=== PATIENT | male | born 1960 | race Caucasian/White ===

== ENCOUNTER 2016-08-30 16:18 | Observation (INO) | payer OTHER ==
--- NOTE | 2016-08-30 16:44 | EDM.PDOC ---
ED HPI GENERAL MEDICAL PROBLEM - General Chief Complaint: Respiratory Problem Stated Complaint: FEVER/SOB Time Seen by Provider: 08/30/16 16:36 - History of Present Illness INITIAL COMMENTS - FREE TEXT/NARRATIVE: 56-year-old male sent over from the clinic for further evaluation of his breathing difficulties fever and asthma. The patient has had increasing breathing difficulties over the last 5-6 days. The patient has a history of recurrent pneumonia he is has long-standing asthma that is well to his inhalers he has a nebulizer at home. The patient has had increasing shortness of breath increasing wheezing he had significant wheezing this morning. Patient was evaluated in the clinic white count elevated C- reactive protein elevated chest x-ray did not show any acute changes. Dr. Perez his regular physician was concerned about bibasilar crackles really did not hear any wheezes. Patient is having worsening chest pain he thinks related to the cough. Addition to this inhalers he has albuterol nebulizer at home this helped perhaps a little early this morning Epigastric Pain Score (Numeric/FACES): 5 - Related Data Allergies Allergy/AdvReac Type Severity Reaction Status Date / Time Penicillins Allergy Mild Rash Verified 08/30/16 16:29 levofloxacin Allergy Rash Verified 08/30/16 16:29 chlorpheniramine polistirex AdvReac Other Verified 08/30/16 16:29 [From Tussionex] hydrocodone polistirex AdvReac Other Verified 08/30/16 16:29 [From Tussionex] Home Meds: Home Meds Glimepiride [Amaryl] 4 mg PO DAILY 11/05/13 [History] atorvaSTATin Calcium [Atorvastatin Calcium] 10 mg PO DAILY 11/05/13 [History] Omeprazole [Prilosec] 20 mg PO DAILY 02/05/14 [History] metFORMIN [Glucophage] 1,000 mg PO BID 11/20/14 [History] Losartan [Cozaar] 50 mg PO DAILY 01/30/15 [History] Albuterol Sulfate 1 unit NEB QID PRN 08/30/16 [History] Albuterol [Ventolin HFA] 108 mcg INH Q6H PRN 08/30/16 [History] Aspirin [Halfprin] 81 mg PO DAILY 08/30/16 [History] Budesonide/Formoterol [Symbicort 160-4.5 MCG] 2 inh INH DAILY 08/30/16 [History] Halobetasol Propionate [Ultravate] 1 applic TOP BID 08/30/16 [History] Montelukast [Singulair] 10 mg PO BEDTIME 08/30/16 [History] SitaGLIPtin [Januvia] 100 mg PO DAILY 08/30/16 [History] Past Medical History Respiratory History: Reports: Asthma, COPD Endocrine/Metabolic History: Reports: Diabetes, Type II - Past Surgical History GI Surgical History: Reports: Colonoscopy Social & Family History - Tobacco Use Smoking Status *Q: Never Smoker Second Hand Smoke Exposure: Yes - Caffeine Use Caffeine Use: Reports: None - Alcohol Use Days Per Week of Alcohol Use: 0 - Recreational Drug Use Recreational Drug Use: No ED ROS GENERAL - Review of Systems Review Of Systems: See Below Constitutional: Reports: Fever, Chills, Weakness, Fatigue HEENT: Reports: No Symptoms Respiratory: Reports: Shortness of Breath, Wheezing, Pleuritic Chest Pain, Cough , Sputum. Denies: Hemoptysis Cardiovascular: Reports: Chest Pain, Dyspnea on Exertion. Denies: Claudication , Palpitations Endocrine: Reports: No Symptoms GI/Abdominal: Reports: No Symptoms : Reports: No Symptoms Skin: Reports: No Symptoms Neurological: Reports: No Symptoms Psychiatric: Reports: No Symptoms Hematologic/Lymphatic: Reports: No Symptoms ED EXAM, GENERAL - Physical Exam Exam: See Below Exam Limited By: No Limitations General Appearance: Alert, Mild Distress (he has a cough that is very uncomfortable) Eye Exam: Bilateral Eye: EOMI, Normal Inspection, PERRL Ears: Normal External Exam, Normal Canal, Hearing Grossly Normal, Normal TMs Nose: Normal Inspection, Normal Mucosa, No Blood Throat/Mouth: Normal Inspection, Normal Lips, Normal Teeth, Normal Gums, Normal Oropharynx, Normal Voice, No Airway Compromise Head: Atraumatic, Normocephalic Neck: Normal Inspection, Supple, Non-Tender, Full Range of Motion. No: Lymphadenopathy (L), Lymphadenopathy (R) Respiratory/Chest: No Respiratory Distress, Other (he is mildly tachypnic. He has bibasilar crackles and end expiratory wheezes heard with my exam) Cardiovascular: Normal Peripheral Pulses, Regular Rate, Rhythm, No Edema GI/Abdominal: Normal Bowel Sounds, Soft, Non-Tender, No Organomegaly, No Distention, No Abnormal Bruit, No Mass, Other (obesity limits exam to a small degree) Back Exam: Normal Inspection. No: CVA Tenderness (L), CVA Tenderness (R), Muscle Spasm Extremities: Other (he had some vague right calf discomfort this was point tenderness over very small area) Neurological: Alert, Oriented, CN II-XII Intact, Normal Cognition Psychiatric: Normal Affect, Normal Mood Lymphatic: No Adenopathy EKG INTERPRETATION EKG Date: 08/30/16 Rhythm: NSR [place]: normal P-wave: present ST-T: normal QT: normal Comparison: no change (no change from July 2015) Course - Vital Signs Last Recorded V/S: Last Vital Signs Temp 37.0 C 08/30/16 16:26 Pulse 79 08/30/16 16:26 Resp 22 H 08/30/16 16:26 BP 130/69 08/30/16 16:26 Pulse Ox 95 08/30/16 16:57 - Orders/Labs/Meds Orders: Active Orders 24 hr Category Date Time Status EKG Documentation Completion [RC] STAT Care 08/30/16 16:48 Active RT Aerosol Therapy [RC] ASDIRECTED Care 08/30/16 16:50 Active CULTURE BLOOD [BC] Stat Lab 08/30/16 17:15 Received CULTURE BLOOD [BC] Stat Lab 08/30/16 17:25 Received Blood Culture x2 Reflex Set [OM.PC] Stat Oth 08/30/16 16:46 Ordered Labs: Laboratory Tests 08/30/16 08/30/16 08/30/16 Range/Units 16:40 16:40 16:40 WBC 15.32 H (4.23-9.07) K/mm3 Neutrophils % (Manual) 84 H (40-60) % Band Neutrophils % 1 (0-10) % Lymphocytes % (Manual) 12 L (20-40) % Atypical Lymphs % 0 % Monocytes % (Manual) 3 (2-10) % Eosinophils % (Manual) 0 L (0.8-7.0) % Basophils % (Manual) 0 L (0.2-1.2) Toxic Granulation 2+ moderate Platelet Estimate Adequate Plt Morphology Comment Normal RBC Morph Comment Normal D-Dimer, Quantitative 0.33 (0.19-0.59) mg/L Puncture Site ABG pH (7.35-7.45) ABG pCO2 (35.0-45.0) mmHg ABG pO2 (80.0-100.0) mmHg ABG HCO3 (22.0-26.0) meq/L ABG O2 Saturation (96.0-97.0) % ABG Base Excess (-2-2.0) Julio Test A-a Gradient mmHg FiO2 (21.00-100.00) % Sodium 141 (136-145) mEq/L Potassium 4.1 (3.5-5.1) mEq/L Chloride 104 (98-107) mEq/L Carbon Dioxide 29 (21-32) mEq/L Anion Gap 12.1 (5-15) BUN 13 (7-18) mg/dL Creatinine 1.1 (0.7-1.3) mg/dL Est Cr Clr Drug Dosing 83.28 mL/min Estimated GFR (MDRD) > 60 (>60) mL/min BUN/Creatinine Ratio 11.8 L (14-18) Glucose 125 H (74-106) mg/dL Lactic Acid (0.4-2.0) mmol/L Calcium 9.6 (8.5-10.1) mg/dL Total Bilirubin 0.3 (0.2-1.0) mg/dL AST 19 (15-37) U/L ALT 42 (16-63) U/L Alkaline Phosphatase 94 (46-116) U/L Troponin I < 0.017 (0.00-0.056) ng/mL Total Protein 7.2 (6.4-8.2) g/dl Albumin 3.6 (3.4-5.0) g/dl Globulin 3.6 gm/dL Albumin/Globulin Ratio 1.0 (1-2) 08/30/16 08/30/16 Range/Units 17:08 17:15 WBC (4.23-9.07) K/mm3 Neutrophils % (Manual) (40-60) % Band Neutrophils % (0-10) % Lymphocytes % (Manual) (20-40) % Atypical Lymphs % % Monocytes % (Manual) (2-10) % Eosinophils % (Manual) (0.8-7.0) % Basophils % (Manual) (0.2-1.2) Toxic Granulation Platelet Estimate Plt Morphology Comment RBC Morph Comment D-Dimer, Quantitative (0.19-0.59) mg/L Puncture Site Lt radial ABG pH 7.46 H (7.35-7.45) ABG pCO2 36.4 (35.0-45.0) mmHg ABG pO2 62.0 L (80.0-100.0) mmHg ABG HCO3 25.6 (22.0-26.0) meq/L ABG O2 Saturation 94.7 L (96.0-97.0) % ABG Base Excess 2.4 H (-2-2.0) Julio Test Positive A-a Gradient 27 mmHg FiO2 21.00 (21.00-100.00) % Sodium (136-145) mEq/L Potassium (3.5-5.1) mEq/L Chloride (98-107) mEq/L Carbon Dioxide (21-32) mEq/L Anion Gap (5-15) BUN (7-18) mg/dL Creatinine (0.7-1.3) mg/dL Est Cr Clr Drug Dosing mL/min Estimated GFR (MDRD) (>60) mL/min BUN/Creatinine Ratio (14-18) Glucose (74-106) mg/dL Lactic Acid 2.4 H (0.4-2.0) mmol/L Calcium (8.5-10.1) mg/dL Total Bilirubin (0.2-1.0) mg/dL AST (15-37) U/L ALT (16-63) U/L Alkaline Phosphatase (46-116) U/L Troponin I (0.00-0.056) ng/mL Total Protein (6.4-8.2) g/dl Albumin (3.4-5.0) g/dl Globulin gm/dL Albumin/Globulin Ratio (1-2) Meds: Medications Discontinued Medications Generic Name Dose Route Start Last Admin Trade Name Freq PRN Reason Stop Dose Admin Albuterol/Ipratropium 3 ml 08/30/16 16:49 08/30/16 16:56 Duoneb 3.0-0.5 Mg/3 Ml NEB 08/30/16 16:50 3 ml ONETIME ONE Administration Methylprednisolone Sodium Succinate 125 mg 08/30/16 16:49 08/30/16 17:06 Solu-Medrol IVPUSH 08/30/16 16:50 125 mg ONETIME ONE Administration Morphine Sulfate 2 mg 08/30/16 16:57 08/30/16 17:10 Morphine IVPUSH 05/25/17 16:58 2 mg ONETIME ONE Administration - Re-Assessments/Exams Free Text/Narrative Re-Assessment/Exam: 08/30/16 19:33 early in the patient's course she was given 125 mg of Solu-Medrol received a DuoNeb treatment and this helped significantly her labs from [facility] obtained and reviewed this x-ray wasnegative for acute changes showed some stable scarring in the left base no definitive consolidation. 08/30/16 20:03 CT is unremarkable, lactic acid slightly elevated at 2. MCG was done he meets criteria for observation. Case reviewed with Dr. Ríos Departure - Departure Time of Disposition: 20:02 Disposition: Refer to Observation Clinical Impression: Asthma exacerbation Chest pain Qualifiers: Chest pain type: unspecified Qualified Code(s): R07.9 - Chest pain, unspecified - Discharge Information Forms: ED Department Discharge - My Orders Last 24 Hours: My Active Orders 08/30/16 16:46 Blood Culture x2 Reflex Set [OM.PC] Stat 08/30/16 16:48 EKG Documentation Completion [RC] STAT 08/30/16 16:50 RT Aerosol Therapy [RC] ASDIRECTED 08/30/16 17:15 CULTURE BLOOD [BC] Stat 08/30/16 17:25 CULTURE BLOOD [BC] Stat - Assessment/Plan Last 24 Hours: My Active Orders 08/30/16 16:46 Blood Culture x2 Reflex Set [OM.PC] Stat 08/30/16 16:48 EKG Documentation Completion [RC] STAT 08/30/16 16:50 RT Aerosol Therapy [RC] ASDIRECTED 08/30/16 17:15 CULTURE BLOOD [BC] Stat 08/30/16 17:25 CULTURE BLOOD [BC] Stat
[2016-08-30] MEDS ORDERED: methylPREDNISolone Sodium Succinate 125 MG/2 ML SDV IVPUSH ONE (16:49)
[2016-08-30] MEDS ORDERED: Albuterol/Ipratropium 3.0-0.5 MG/3 ML Neb Soln NEB ONE (16:49)
[2016-08-30] MEDS ORDERED: Morphine 2 MG/ML Syringe IVPUSH ONE (16:57)
--- NOTE | 2016-08-30 19:57 | CT ---
Addendum: Impression states "nothing acute is seen on noncontrast head" CT which is obviously incorrect. This sentence should read as follows: Nothing acute is seen on noncontrast chest CT. --- Addendum1 above dictated on [09/05/2016 09:11] by [Noe Dunham Hilton J.] --- --- Addendum1 above signed on [09/05/2016 09:12] by [Noe Dunham Hilton J.] --- --- Original report below dictated on [08/30/2016 19:50] by [Noe Dunham Hilton J.] --- --- Original report below signed on [08/30/2016 19:55] by [Noe Dunham Hilton J.] --- CT chest Technique: Multiple axial sections through the chest were obtained. Intravenous contrast was not utilized. Comparison: Previous chest CT performed on 06/17/15. Findings: Mediastinum and hilar regions show no adenopathy or mass. Slight increased density noted within the subareolar regions of both breasts which is compatible with slight gynecomastia. No pericardial thickening is seen. Fatty infiltration is seen within the visualized portions of the liver. Lungs are clear. No pleural effusions are seen. No pneumothorax is identified. Bone window settings were reviewed which shows mild scattered disc space narrowing and minimal scattered endplate osteophytes. Impression: 1. Incidental findings as noted above. Nothing acute is seen on noncontrast head CT. No significant change is seen from prior chest CT. Diagnostic code #2 --- Addendum1 signed ---
[2016-08-30] MEDS ORDERED: Azithromycin 500 MG in Sodium Chloride 0.9% 250 ML IV ONE (20:07)
[2016-08-30] MEDS ORDERED: Promethazine 12.5 MG in Sodium Chloride 0.9% 50 ML IV PRN (21:12)
[2016-08-30] MEDS ORDERED: Bisacodyl 5 MG Tab PO PRN (21:12)
[2016-08-30] MEDS ORDERED: Ondansetron 4 MG/2 ML SDV IV PRN (21:12)
[2016-08-30] MEDS ORDERED: Acetaminophen/HYDROcodone 325-5 MG Tab PO PRN (21:12)
[2016-08-30] MEDS ORDERED: Docusate Sodium 100 MG Cap PO PRN (21:12)
[2016-08-30] MEDS ORDERED: LORazepam 2 MG/ML MDV IV PRN (21:12)
[2016-08-30] MEDS ORDERED: Sodium Chloride 0.9% 10 ML Syringe FLUSH PRN (21:12)
[2016-08-30] MEDS ORDERED: Albuterol/Ipratropium 3.0-0.5 MG/3 ML Neb Soln NEB PRN (21:12)
[2016-08-30] MEDS ORDERED: Temazepam 15 MG Cap PO PRN (21:12)
[2016-08-30] MEDS ORDERED: Acetaminophen 325 MG Tab PO PRN (21:12)
[2016-08-30] MEDS ORDERED: Polyethylene Glycol 3350 Powder 17 GM Packet PO PRN (21:12)
--- NOTE | 2016-08-30 21:12 | PCM.HP ---
H&P History of Present Illness - General Date of Service: 08/30/16 Admit Problem/Dx: Admission Diagnosis/Problem Admission Diagnosis/Problem Chest pain Source of Information: Patient, Old Records, Provider, RN Notes Reviewed History Limitations: Reports: No Limitations - History of Present Illness Initial Comments - Free Text/Narative: This is 56 yo white male HTN, HLD, Asthma, COPD, DM2 and Obesity who comes in with worsening shortness of breath, wheezing, chest pain and dyspnea. Patient carries a long standing hx/o Asthma. He was initially seen at his PCP's office but was referred to ED for further evaluation. Per ED notes, patient had elevated white count and CRP at the clinic. His initial CXR at the clinic shows no acute changes but his PCP was concerns about bibasilar crackles but did not hear any wheezing. Patient has puffers at home and nebs. He is also on singulair for maintenance meds. His follow up work up in ED Shows CBC remarkable for WBC 15.32, and Neutrophils or 84%. D-dimer is 0.33. Hid chemistry is remarkable for BS 125 and LA 2.4. His ABG shows Ph 7.46, pCO2 36.4, pO2 62. HCO3 25.6 and Os Sat 94.7. Patient is being admitted for Acute Asthma Attack. He is full code. Epigastric Pain Score (Numeric/FACES): 3 - Related Data Allergies/Adverse Reactions: Allergies Allergy/AdvReac Type Severity Reaction Status Date / Time Penicillins Allergy Mild Rash Verified 08/30/16 16:29 levofloxacin Allergy Rash Verified 08/30/16 16:29 chlorpheniramine polistirex AdvReac Other Verified 08/30/16 16:29 [From Tussionex] hydrocodone polistirex AdvReac Other Verified 08/30/16 16:29 [From Tussionex] Home Medications: Home Meds Glimepiride [Amaryl] 4 mg PO DAILY 11/05/13 [History] atorvaSTATin Calcium [Atorvastatin Calcium] 10 mg PO DAILY 11/05/13 [History] Omeprazole [Prilosec] 20 mg PO DAILY 02/05/14 [History] metFORMIN [Glucophage] 1,000 mg PO BID 11/20/14 [History] Losartan [Cozaar] 50 mg PO DAILY 10/25/15 [History] Albuterol Sulfate 1 unit NEB QID PRN 08/30/16 [History] Albuterol [Ventolin HFA] 108 mcg INH Q6H PRN 08/30/16 [History] Aspirin [Halfprin] 81 mg PO DAILY 08/30/16 [History] Budesonide/Formoterol [Symbicort 160-4.5 MCG] 2 inh INH DAILY 08/30/16 [History] Halobetasol Propionate [Ultravate] 1 applic TOP BID 08/30/16 [History] Montelukast [Singulair] 10 mg PO BEDTIME 08/30/16 [History] SitaGLIPtin [Januvia] 100 mg PO DAILY 08/30/16 [History] Past Medical History Respiratory History: Reports: Asthma, COPD Endocrine/Metabolic History: Reports: Diabetes, Type II - Past Surgical History GI Surgical History: Reports: Colonoscopy Social & Family History - Tobacco Use Smoking Status *Q: Never Smoker Second Hand Smoke Exposure: Yes - Caffeine Use Caffeine Use: Reports: None - Alcohol Use Days Per Week of Alcohol Use: 0 - Recreational Drug Use Recreational Drug Use: No H&P Review of Systems - Review of Systems: Review Of Systems: See Below General: Denies: Fever, Chills, Malaise, Weakness HEENT: Reports: No Symptoms Pulmonary: Reports: Shortness of Breath, Wheezing, Cough Cardiovascular: Reports: Chest Pain, Dyspnea on Exertion Gastrointestinal: Denies: Abdominal Pain, Decreased Appetite, Nausea, Vomiting Genitourinary: Reports: No Symptoms Musculoskeletal: Reports: No Symptoms Skin: Denies: Cyanosis, Pallor, Rash Psychiatric: Denies: Confusion, Depression, Anxiety, Hallucinations Neurological: Denies: Dizziness, Headache, Difficulty Walking, Weakness, Gait Disturbance Hematologic/Lymphatic: Reports: No Symptoms Immunologic: Reports: No Symptoms Exam - Exam Exam: See Below - Vital Signs Vital Signs: Last Vital Signs Temp 37.0 C 08/30/16 16:26 Pulse 85 08/30/16 20:44 Resp 20 08/30/16 20:44 BP 140/88 08/30/16 20:44 Pulse Ox 95 08/30/16 20:44 Weight: 140.659 kg - Exam General: Alert, Oriented, Cooperative, Other (Obese). No: Mild Distress HEENT: Conjunctiva Clear, EACs Clear, EOMI, Hearing Intact, Mucosa Moist & Wall , Nares Patent, Normal Nasal Septum, Posterior Pharynx Clear, Pupils Equal, Pupils Reactive Neck: Supple, Trachea Midline, +2 Carotid Pulse wo Bruit, Full Range of Motion, Other (short and thick) Lungs: Clear to Auscultation, Normal Respiratory Effort Cardiovascular: Regular Rate, Regular Rhythm Abdomen: Normal Bowel Sounds, Soft, Organomegaly, Other (Obese). No: Tenderness (Male) Exam: Deferred Rectal (Males) Exam: Deferred Back Exam: Normal Inspection, Decreased Range of Motion Extremities: Normal Inspection, Normal Pulses. No: Clubbing, Cyanosis, Calf Tenderness, Edema Peripheral Pulses: 2+: Posterior Tibial (R), Dorsalis Pedis (L), Dorsalis Pedis (R) Skin: Warm, Dry, Intact Neuro Extensive - Mental Status: Oriented x3, Normal Cognition, Memory Intact Neuro Extensive - Motor, Sensory, Reflexes: CN II-XII Intact, Normal Gait Psychiatric: Alert, Normal Affect, Normal Mood - Patient Data Result Diagrams: 08/30/16 16:40 08/30/16 16:40 *Q Meaningful Use (ADM) - VTE *Q VTE Criteria *Q: - Stroke *Q Stroke Criteria *Q: - AMI *Q AMI Criteria *Q: Problem List Initiated/Reviewed/Updated: Yes Assessment/Plan Comment:: Assessment/Plan: Acute Asthma Attack - Risk factor: Chronic Asthma - Chest CT scan: nothing acutely - Exposure to environmental triggers - IV Solumedrol, IV Azithromycin, H1B, Singulair and Bronchodilators Lactic Acidoses - 2/2 localized hypoxia - Will monitor Leukocytosis - 2/2 Stress and Steroids Use Chronic: DM2 HLD HLD GERD Obesity with BMI 42 Plan: Admit to the floor with pulse ox Resume Home Meds Routine AM Labs RT consult SW/CM for d/c planning Code status:1
[2016-08-30] MEDS ORDERED: Magnesium Sulfate/Water 2 GM in Premix Bag 1 BAG IV ONE (22:22)
[2016-08-30] MEDS ORDERED: VENTOLIN INHALER INH PRN (22:50)
[2016-08-30] MEDS ORDERED: Albuterol 0.083% 2.5 MG/3 ML Neb Soln NEB PRN (22:50)
[2016-08-30] MEDS: Morphine 2 MG/ML Syringe IVPUSH PRN (22:56)
[2016-08-30] MEDS ORDERED: MONTELUKAST 10 MG PO ONE (23:00)
[2016-08-30] MEDS ORDERED: METFORMIN 1000 MG PO ONE (23:00)
[2016-08-31] MEDS: methylPREDNISolone Sodium Succinate 125 MG/2 ML SDV IVPUSH SCH ×4 (01:06→23:57)
[2016-08-31] MEDS ORDERED: Temazepam 30 MG Cap PO PRN (07:25)
[2016-08-31] MEDS: Pantoprazole 40 MG Tab.CR PO SCH (08:45)
[2016-08-31] MEDS: Azithromycin 500 MG in Sodium Chloride 0.9% 250 ML IV SCH (08:45)
[2016-08-31] MEDS: METFORMIN 1000 MG PO SCH ×2 (08:49→21:39)
[2016-08-31] MEDS: ASPIRIN 81 MG PO SCH (08:49)
[2016-08-31] MEDS: JANUVIA PO SCH (08:50)
[2016-08-31] MEDS: SITAGLIPTIN 100 MG PO SCH (08:50)
[2016-08-31] MEDS: Formoterol/Mometasone 200-5 MCG 8.8 GM Inhaler IH SCH (08:51)
[2016-08-31] MEDS ORDERED: Bumetanide 1 MG/4 ML MDV IVPUSH ONE (10:26)
--- NOTE | 2016-08-31 11:31 | PCM.PN ---
- General Info Date of Service: 08/31/16 Admission Dx/Problem (Free Text): Admission Diagnosis/Problem Admission Diagnosis/Problem Chest pain Subjective Update: Follow Up Functional Status: Reports: pain controlled, tolerating diet, ambulating, urinating. Denies: new symptoms - Review of Systems General: Denies: Fever, Weakness, Fatigue, Malaise, Chills HEENT: Reports: no symptoms Pulmonary: Denies: shortness of breath, cough Cardiovascular: Reports: Dyspnea on Exertion. Denies: Chest Pain, Edema, Lightheadedness Gastrointestinal: Denies: Abdominal pain, Nausea, Vomiting Genitourinary: Reports: no symptoms Musculoskeletal: Reports: no symptoms Skin: Reports: no symptoms Neurological: Denies: Confusion, Difficulty Walking, Weakness, Gait Disturbance Psychiatric: Denies: depression, anxiety, agitation, cravings Systems Review Comment:: No overnight issues. He feels better but no much. He has no acute issues. - Patient Data Vitals - most recent: Last Vital Signs Temp 36.4 C 08/31/16 08:56 Pulse 78 08/31/16 08:56 Resp 18 08/31/16 08:56 BP 148/73 H 08/31/16 08:56 Pulse Ox 95 08/31/16 08:56 Weight - most recent: 140.024 kg I&O - last 24 hours: Intake & Output 08/30/16 08/31/16 08/31/16 22:59 06:59 14:59 Intake Total 648 240 Output Total 150 425 Balance -150 223 240 Lab Results last 24 hrs: Laboratory Results - last 24 hr 08/31/16 08/31/16 Range/Units 05:47 05:47 WBC 16.42 H (4.23-9.07) K/mm3 RBC 5.09 (4.63-6.08) M/mm3 Hgb 14.3 (13.7-17.5) gm/L Hct 44.5 (40.1-51.0) % MCV 87.4 (79.0-92.2) fl MCH 28.1 (25.7-32.2) pg MCHC 32.1 L (32.2-35.5) g/dl RDW Std Deviation 45.1 H (35.1-43.9) fL Plt Count 268 (163-337) K/mm3 MPV 11.5 (9.4-12.3) fl Neut % (Auto) 94.5 H (34.0-67.9) % Lymph % (Auto) 4.8 L (21.8-53.1) % [place] % (Auto) 0.4 L (5.3-12.2) % Eos % (Auto) 0 L (0.8-7.0) Baso % (Auto) 0.1 (0.1-1.2) % Neut # (Auto) 15.51 H (1.78-5.38) K/mm3 Lymph # (Auto) 0.79 L (1.32-3.57) K/mm3 [place] # (Auto) 0.07 L (0.30-0.82) K/mm3 Eos # (Auto) 0.00 L (0.04-0.54) K/mm3 Baso # (Auto) 0.01 (0.01-0.08) K/mm3 Manual Slide Review Normal smear Sodium 137 (136-145) mEq/L Potassium 4.4 (3.5-5.1) mEq/L Chloride 102 (98-107) mEq/L Carbon Dioxide 23 (21-32) mEq/L Anion Gap 16.4 H (5-15) BUN 16 (7-18) mg/dL Creatinine 1.1 (0.7-1.3) mg/dL Est Cr Clr Drug Dosing 83.28 mL/min Estimated GFR (MDRD) > 60 (>60) mL/min BUN/Creatinine Ratio 14.5 (14-18) Glucose 255 H (74-106) mg/dL Calcium 8.9 (8.5-10.1) mg/dL Magnesium 2.0 (1.8-2.4) mg/dl CK-MB (CK-2) < 0.5 (0-3.6) ng/ml Troponin I < 0.017 (0.00-0.056) ng/mL C-Reactive Protein 2.9 H* (<1.0) mg/dL Med Orders - Current: Current Medications Acetaminophen (Tylenol) 650 mg PO Q4H PRN PRN Reason: Pain (Mild 1-3)/fever Hydrocodone Bitart/Acetaminophen ([place] 325-5 Mg) 1 tab PO Q4H PRN PRN Reason: Pain (moderate 4-6) Albuterol (Proventil Neb Soln) 2.5 mg NEB QID PRN PRN Reason: wheezing Albuterol/Ipratropium (Duoneb 3.0-0.5 Mg/3 Ml) 3 ml NEB Q4H PRN PRN Reason: Shortness Of Breath/wheezing Bisacodyl (Dulcolax) 5 mg PO DAILY PRN PRN Reason: Constipation Docusate Sodium (Colace) 100 mg PO BID PRN PRN Reason: Constipation Promethazine HCl 12.5 mg/ (Sodium Chloride) 50.5 mls @ 100 mls/hr IV Q6H PRN PRN Reason: Nausea/Vomiting Azithromycin 500 mg/ Sodium (Chloride) 250 mls @ 250 mls/hr IV Q24H [facility] Last Admin: 08/31/16 08:45 Dose: 250 mls/hr Lorazepam (Ativan) 1 mg IV Q6H PRN PRN Reason: Anxiety Methylprednisolone Sodium Succinate (Solu-Medrol) 125 mg IVPUSH Q8H [facility] Last Admin: 08/31/16 08:46 Dose: 125 mg Mometasone Furoate/Formoterol Fumar (Dulera 200-5 Mcg) 0 puff IH DAILY [facility] Last Admin: 08/31/16 08:51 Dose: 1 puff Morphine Sulfate (Morphine) 2 mg IVPUSH Q4H PRN PRN Reason: Other Last Admin: 08/30/16 22:56 Dose: 2 mg Ondansetron HCl (Zofran) 4 mg IV Q6H PRN PRN Reason: Nausea/Vomiting Pantoprazole Sodium (Protonix) 40 mg PO DAILY@0700 [facility] Last Admin: 08/31/16 08:45 Dose: 40 mg (Aspirin [Halfprin] 81 Mg)Own Med * 0 each PO DAILY [facility] Last Admin: 08/31/16 08:49 Dose: 1 each (Glimepiride [Amaryl ] 4 Mg)Own Med 0 each PO DAILY [facility] Last Admin: 08/31/16 08:47 Dose: 1 each (Halobetasol Propionate [ Ultravate] Topical 0 each TOP BID [facility] Last Admin: 08/31/16 08:47 Dose: Not Given (Losartan 50 Mg) (Own Med) 0 each PO DAILY [facility] Last Admin: 08/31/16 08:48 Dose: 1 each Montelukast 10 Mg (TabOwn Med) 0 each PO BEDTIME [facility] (Sitagliptin 100 Mg) (Januvia) 0 each PO DAILY [facility] Last Admin: 08/31/16 08:50 Dose: 1 each (Atorvastatin Calcium 10 Mg) Own Med 0 each PO DAILY [facility] Last Admin: 08/31/16 08:46 Dose: 1 each (Metformin [ Glucophage] 1,000 Mg )Own Med 0 each PO BID [facility] Last Admin: 08/31/16 08:49 Dose: 1 each Ventolin Inhaler 0 each INH Q6H PRN PRN Reason: wheezing Polyethylene Glycol (Miralax) 17 gm PO DAILY PRN PRN Reason: Constipation Senna/Docusate Sodium (Senna Plus) 1 tab PO BID PRN PRN Reason: Constipation Sodium Chloride (Saline Flush) 10 ml FLUSH ASDIRECTED PRN PRN Reason: Keep Vein Open Temazepam (Restoril) 30 mg PO BEDTIME PRN PRN Reason: Sleep Discontinued Medications Albuterol/Ipratropium (Duoneb 3.0-0.5 Mg/3 Ml) 3 ml NEB ONETIME ONE Stop: 08/30/16 16:50 Last Admin: 08/30/16 16:56 Dose: 3 ml Bumetanide (Bumex) 1 mg IVPUSH ONETIME ONE Stop: 08/31/16 10:27 Azithromycin 500 mg/ Sodium (Chloride) 250 mls @ 250 mls/hr IV ONETIME ONE Stop: 08/30/16 21:06 Last Admin: 08/30/16 20:15 Dose: 250 mls/hr Magnesium Sulfate 2 gm/ Premix 50 mls @ 25 mls/hr IV ONETIME ONE Stop: 08/31/16 00:21 Last Admin: 08/30/16 22:47 Dose: 25 mls/hr Methylprednisolone Sodium Succinate (Solu-Medrol) 125 mg IVPUSH ONETIME ONE Stop: 08/30/16 16:50 Last Admin: 08/30/16 17:06 Dose: 125 mg Montelukast Sodium (Singulair) 10 mg PO ONETIME ONE Stop: 08/30/16 23:01 Last Admin: 08/30/16 22:49 Dose: 10 mg Morphine Sulfate (Morphine) 2 mg IVPUSH ONETIME ONE Stop: 08/30/16 16:58 Last Admin: 08/30/16 17:10 Dose: 2 mg (Atorvastatin Calcium 10 Mg) Own Med 10 mg PO ONETIME ONE Stop: 08/30/16 23:01 Last Admin: 08/30/16 22:48 Dose: 10 mg (Metformin [ Glucophage] 1,000 Mg )Own Med 1,000 mg PO ONETIME ONE Stop: 08/30/16 23:01 Last Admin: 08/30/16 22:49 Dose: 1,000 mg Temazepam (Restoril) 30 mg PO BEDTIME PRN PRN Reason: Sleep - Exam Quality Assessment: No: supplemental oxygen General: alert, oriented, cooperative, no acute distress, mild distress HEENT: Pupils equal, Pupils reactive, EOMI, Mucous membr. moist/pink Neck: supple, trachea midline, no JVD, no thyromegaly Lungs: Clear to auscultation, Normal respiratory effort, Decreased breath sounds. No: Wheezing Cardiovascular: Regular Rate, Regular Rhythm Abdomen: bowel sounds present, soft, no tenderness, no distension (Male) Exam: Deferred Back Exam: Normal Inspection, Decreased Range of Motion Extremities: no edema, normal pulses, no tenderness/swelling, no clubbing, no cyanosis, no calf tenderness Peripheral Pulses: 2+: Dorsalis Pedis (L), Dorsalis Pedis (R) Skin: warm, dry, intact Neurological: no new focal deficit Psy/Mental Status: alert, normal affect, normal mood - Problem List Review Problem List Initiated/Reviewed/Updated: Yes - My Orders Last 24 Hours: My Active Orders 08/30/16 21:12 Height and Weight [RC] 04 Intake and Output [RC] 04,16 Oxygen Therapy [RC] PRN Pulse Oximetry [RC] CONTINUOUS Up With Assistance [RC] ASDIRECTED Up ad Wendy [RC] ASDIRECTED VTE/DVT Education [RC] DAILY Vital Signs [RC] Q6H Acetaminophen [Tylenol] 650 mg PO Q4H PRN Acetaminophen/HYDROcodone [[place] 325-5 MG] 1 tab PO Q4H PRN Albuterol/Ipratropium [DuoNeb 3.0-0.5 MG/3 ML] 3 ml NEB Q4H PRN Bisacodyl [Dulcolax] 5 mg PO DAILY PRN Docusate Sodium [Colace] 100 mg PO BID PRN Docusate Sodium/Sennosides [Senna Plus] 1 tab PO BID PRN LORazepam [Ativan] 1 mg IV Q6H PRN Ondansetron [Zofran] 4 mg IV Q6H PRN Polyethylene Glycol 3350 [MiraLAX] 17 gm PO DAILY PRN Promethazine [Phenergan] 12.5 mg Sodium Chloride 0.9% [Normal Saline] 50 ml IV Q6H Sodium Chloride 0.9% [Saline Flush] 10 ml FLUSH ASDIRECTED PRN Saline Lock Insert [OM.PC] Routine Sequential Compression Device [OM.PC] Per Unit Routine Resuscitation Status Routine 08/30/16 21:13 Antiembolic Devices [RC] DAILY 08/30/16 21:14 Consult to Case Management [CONS] Routine Consult to Automotive Service Manager [CONS] Routine Respiratory Care Assess and Treatment [CONS] Routine 08/30/16 21:18 Morphine 2 mg IVPUSH Q4H PRN 08/30/16 22:50 Albuterol [Proventil Neb Soln] 2.5 mg NEB QID PRN Patient's Own Medication [Ptom] 0 each INH Q6H PRN 08/30/16 Dinner Regular Diet [DIET] 08/31/16 00:00 methylPREDNISolone Sod Succ [Solu-MEDROL] 125 mg IVPUSH Q8H 08/31/16 07:25 Temazepam [Restoril] 30 mg PO BEDTIME PRN 08/31/16 08:15 Pantoprazole [ProTONIX] 40 mg PO DAILY@0700 08/31/16 09:00 Azithromycin [Zithromax] 500 mg Sodium Chloride 0.9% [Normal Saline] 250 ml IV Q24H Mometasone/Formoterol [Dulera 200-5 MCG] 0 puff IH DAILY Patient's Own Medication [Ptom] 0 each PO BID Patient's Own Medication [Ptom] 0 each PO DAILY Patient's Own Medication [Ptom] 0 each PO DAILY Patient's Own Medication [Ptom] 0 each PO DAILY Patient's Own Medication [Ptom] 0 each PO DAILY Patient's Own Medication [Ptom] 0 each PO DAILY Patient's Own Medication [Ptom] 0 each TOP BID 08/31/16 10:24 Echo Comp wo Cont [US] Urgent 08/31/16 12:00 CKMB [CHEM] Routine 08/31/16 21:00 Patient's Own Medication [Ptom] 0 each PO BEDTIME 09/01/16 05:11 BASIC METABOLIC PANEL,BMP [CHEM] AM C-REACTIVE PROTEIN [CHEM] AM CBC WITH AUTO DIFF [HEME] AM MAGNESIUM [CHEM] AM 09/02/16 05:11 BASIC METABOLIC PANEL,BMP [CHEM] AM C-REACTIVE PROTEIN [CHEM] AM CBC WITH AUTO DIFF [HEME] AM MAGNESIUM [CHEM] AM 09/03/16 05:11 BASIC METABOLIC PANEL,BMP [CHEM] AM C-REACTIVE PROTEIN [CHEM] AM MAGNESIUM [CHEM] AM - Plan Plan:: Assessment/Plan: Acute Asthma Attack, IMprove - Risk factor: Chronic Asthma - Chest CT scan: nothing acutely - Exposure to environmental triggers - IV Solumedrol, IV Azithromycin, H1B, Singulair and Bronchodilators Lactic Acidoses - 2/2 localized hypoxia - Likely resolved Leukocytosis - WBC 15.32 ---> 16.42 - 2/2 Stress and Steroids Use - CRP 2.9 Dyspnea - Troponin X 3 all negative - 2D echo for baseline Chronic: DM2 HLD HLD GERD Obesity with BMI 42 Plan: Offered to discharge but felt he could use one more day Continue current treatment Routine AM Labs Continue RT Diabetic Education Dietary consult for weight management SW/CM for d/c planning Additional orders as above Code status:1 Possible d/c in am
[2016-08-31] MEDS: Morphine 2 MG/ML Syringe IVPUSH PRN (15:29)
[2016-08-31] MEDS ORDERED: MONTELUKAST 10 MG PO SCH (21:00)
[2016-09-01] MEDS: Pantoprazole 40 MG Tab.CR PO SCH (06:23)
--- NOTE | 2016-09-01 08:18 | PCM.DCSUM1 ---
Discharge Summary - Hospital Course Brief History: This is 56 yo white male HTN, HLD, Asthma, COPD, DM2 and Obesity who comes in with worsening shortness of breath, wheezing, chest pain and dyspnea. Patient carries a long standing hx/o Asthma. He was initially seen at his PCP's office but was referred to ED for further evaluation. Patient was admitted for Asthma Exacerbation. - Discharge Data Discharge Date: 09/01/16 Discharge Disposition: Home, Self-Care 01 Condition: Good - Discharge Diagnosis/Problem(s) (1) Asthma exacerbation SNOMED Code(s): 026501077 ICD Code: J45.901 - UNSPECIFIED ASTHMA WITH (ACUTE) EXACERBATION Status: Resolved Current Visit: Yes (2) Leukocytosis SNOMED Code(s): 214233799, 015220743 ICD Code: D72.829 - ELEVATED WHITE BLOOD CELL COUNT, UNSPECIFIED Status: Acute Current Visit: Yes Qualifiers: Leukocytosis type: unspecified Qualified Code(s): D72.829 - Elevated white blood cell count, unspecified (3) Dyspnea SNOMED Code(s): 015214505 ICD Code: R06.00 - DYSPNEA, UNSPECIFIED Status: Resolved Current Visit: Yes (4) Lactic acidosis SNOMED Code(s): 23946552 ICD Code: E87.2 - ACIDOSIS Status: Resolved Current Visit: Yes - Patient Summary/Data Operative Procedure(s) Performed: None Complications: None Consults: Consultations 08/30/16 21:14 Consult to Case Management [CONS] Routine Consult to Restaurant Front Manager [CONS] Routine Respiratory Care Assess and Treatment [CONS] Routine 08/31/16 14:38 Consult to Dietary [Consult to Vault Mechanic] [CONS] Routine Hospital Course: Patient was primarily admitted for medical management of Asthma Exacerbation. He carries a longstanding hx/o Asthma w/o COPD component. 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 On this admission, he was given intravenous solumedrol, bronchodilators, intravenous magnesium sulfate and he immediately improved on this regimen. His hospital course was uncomplicated and the rest of his chronic medical conditions remained stable. conservation educator and dietary counseling were consulted for life style modifications. Patient has done well since admission. He is now back to baseline. He was advised to use face mask if he anticipates any job related exposure to environmental allergens. He was further advised to carry with him his rescue inhaler in any event he develops sudden attack. The patient expressed understanding and in agreement with the plans as discussed above. All questions were answered. - Patient Instructions Diet: Usual Diet as Tolerated, Diabetic Diet Driving: Do Not Drive Showering/Bathing: May Shower Notify Provider of: Fever, Increased Pain, Swelling and Redness, Nausea and/or Vomiting Other/Special Instructions: - Resume all your home meds. - Please cover your mouth of have some face mask when you anticipate you will be expose to job related environmental allergens. - Always carry with you your rescue inhaler. - See a hotel dining room cashier if you get more frequent attacks than usual. - Follow up with your family doctor as needed - Discharge Plan Home Medications: Home Meds Glimepiride [Amaryl] 4 mg PO DAILY 11/05/13 [History] atorvaSTATin Calcium [Atorvastatin Calcium] 10 mg PO DAILY 11/05/13 [History] Omeprazole [Prilosec] 20 mg PO DAILY 02/05/14 [History] metFORMIN [Glucophage] 1,000 mg PO BID 11/20/14 [History] Losartan [Cozaar] 50 mg PO DAILY 01/30/15 [History] Albuterol Sulfate 1 unit NEB QID PRN 08/30/16 [History] Albuterol [Ventolin HFA] 108 mcg INH Q6H PRN 08/30/16 [History] Aspirin [Halfprin] 81 mg PO DAILY 08/30/16 [History] Budesonide/Formoterol [Symbicort 160-4.5 MCG] 2 inh INH DAILY 08/30/16 [History] Halobetasol Propionate [Ultravate] 1 applic TOP BID 08/30/16 [History] Montelukast [Singulair] 10 mg PO BEDTIME 08/30/16 [History] SitaGLIPtin [Januvia] 100 mg PO DAILY 08/30/16 [History] Referrals: Gilbert Perez MD [Primary Care Provider] - - Discharge Summary/Plan Comment DC Time >30 min.: Yes (45 mins) Discharge Summary/Plan Comment: Discharge to Home - General Info Date of Service: 09/01/16 Admission Dx/Problem (Free Text: Admission Diagnosis/Problem Admission Diagnosis/Problem Chest pain Subjective Update: Follow Up Functional Status: Reports: pain controlled, tolerating diet, ambulating, urinating. Denies: new symptoms - Review of Systems General: Denies: Fever, Weakness, Fatigue, Malaise, Chills HEENT: Reports: no symptoms Pulmonary: Reports: shortness of breath (baseline). Denies: cough, sputum, wheezing Cardiovascular: Denies: Chest Pain, Dyspnea on Exertion, Lightheadedness Gastrointestinal: Denies: Abdominal pain, Nausea, Vomiting Genitourinary: Reports: no symptoms Musculoskeletal: Reports: no symptoms Skin: Reports: no symptoms Neurological: Denies: Confusion, Difficulty Walking, Weakness, Gait Disturbance Psychiatric: Denies: depression, anxiety, agitation, hallucinations Systems Review Comment: No overnight or acute issues. He is back to baseline and wants to go home. - Patient Data Vitals - Most Recent: Last Vital Signs Temp 37.3 C 08/31/16 20:21 Pulse 90 08/31/16 20:21 Resp 18 08/31/16 20:21 BP 155/63 H 08/31/16 20:21 Pulse Ox 95 08/31/16 21:12 Weight - Most Recent: 139.48 kg I&O - Last 24 hours: Intake & Output 08/31/16 09/01/16 09/01/16 22:59 06:59 14:59 Intake Total 1610 1040 Output Total 960 1750 Balance 650 -710 Lab Results - Last 24 hrs: Laboratory Results - last 24 hr 08/31/16 08/31/16 09/01/16 Range/Units 13:07 18:15 05:30 WBC 29.52 H (4.23-9.07) K/mm3 RBC 5.02 (4.63-6.08) M/mm3 Hgb 14.1 (13.7-17.5) gm/L Hct 43.7 (40.1-51.0) % MCV 87.1 (79.0-92.2) fl MCH 28.1 (25.7-32.2) pg MCHC 32.3 (32.2-35.5) g/dl RDW Std Deviation 45.4 H (35.1-43.9) fL Plt Count 307 (163-337) K/mm3 MPV 11.5 (9.4-12.3) fl Neut % (Auto) 94.9 H (34.0-67.9) % Lymph % (Auto) 3.1 L (21.8-53.1) % [place] % (Auto) 1.7 L (5.3-12.2) % Eos % (Auto) 0 L (0.8-7.0) Baso % (Auto) 0.0 L (0.1-1.2) % Neut # (Auto) 27.99 H (1.78-5.38) K/mm3 Lymph # (Auto) 0.91 L (1.32-3.57) K/mm3 [place] # (Auto) 0.51 (0.30-0.82) K/mm3 Eos # (Auto) 0.00 L (0.04-0.54) K/mm3 Baso # (Auto) 0.01 (0.01-0.08) K/mm3 Manual Slide Review Sodium (136-145) mEq/L Potassium (3.5-5.1) mEq/L Chloride (98-107) mEq/L Carbon Dioxide (21-32) mEq/L Anion Gap (5-15) BUN (7-18) mg/dL Creatinine (0.7-1.3) mg/dL Est Cr Clr Drug Dosing mL/min Estimated GFR (MDRD) (>60) mL/min BUN/Creatinine Ratio (14-18) Glucose (74-106) mg/dL Calcium (8.5-10.1) mg/dL Magnesium (1.8-2.4) mg/dl CK-MB (CK-2) 0.5 (0-3.6) ng/ml Troponin I < 0.017 (0.00-0.056) ng/mL C-Reactive Protein (<1.0) mg/dL 09/01/16 Range/Units 05:30 WBC (4.23-9.07) K/mm3 RBC (4.63-6.08) M/mm3 Hgb (13.7-17.5) gm/L Hct (40.1-51.0) % MCV (79.0-92.2) fl MCH (25.7-32.2) pg MCHC (32.2-35.5) g/dl RDW Std Deviation (35.1-43.9) fL Plt Count (163-337) K/mm3 MPV (9.4-12.3) fl Neut % (Auto) (34.0-67.9) % Lymph % (Auto) (21.8-53.1) % [place] % (Auto) (5.3-12.2) % Eos % (Auto) (0.8-7.0) Baso % (Auto) (0.1-1.2) % Neut # (Auto) (1.78-5.38) K/mm3 Lymph # (Auto) (1.32-3.57) K/mm3 [place] # (Auto) (0.30-0.82) K/mm3 Eos # (Auto) (0.04-0.54) K/mm3 Baso # (Auto) (0.01-0.08) K/mm3 Manual Slide Review Sodium 138 (136-145) mEq/L Potassium 4.7 (3.5-5.1) mEq/L Chloride 103 (98-107) mEq/L Carbon Dioxide 26 (21-32) mEq/L Anion Gap 13.7 (5-15) BUN 27 H (7-18) mg/dL Creatinine 1.2 (0.7-1.3) mg/dL Est Cr Clr Drug Dosing 76.34 mL/min Estimated GFR (MDRD) > 60 (>60) mL/min BUN/Creatinine Ratio 22.5 H (14-18) Glucose 297 H (74-106) mg/dL Calcium 8.8 (8.5-10.1) mg/dL Magnesium 2.1 (1.8-2.4) mg/dl CK-MB (CK-2) (0-3.6) ng/ml Troponin I (0.00-0.056) ng/mL C-Reactive Protein 1.7 H* (<1.0) mg/dL Med Orders - Current: Current Medications Acetaminophen (Tylenol) 650 mg PO Q4H PRN PRN Reason: Pain (Mild 1-3)/fever Hydrocodone Bitart/Acetaminophen ([place] 325-5 Mg) 1 tab PO Q4H PRN PRN Reason: Pain (moderate 4-6) Albuterol (Proventil Neb Soln) 2.5 mg NEB QID PRN PRN Reason: wheezing Albuterol/Ipratropium (Duoneb 3.0-0.5 Mg/3 Ml) 3 ml NEB Q4H PRN PRN Reason: Shortness Of Breath/wheezing Bisacodyl (Dulcolax) 5 mg PO DAILY PRN PRN Reason: Constipation Docusate Sodium (Colace) 100 mg PO BID PRN PRN Reason: Constipation Promethazine HCl 12.5 mg/ (Sodium Chloride) 50.5 mls @ 100 mls/hr IV Q6H PRN PRN Reason: Nausea/Vomiting Azithromycin 500 mg/ Sodium (Chloride) 250 mls @ 250 mls/hr IV Q24H [facility] Last Admin: 08/31/16 08:45 Dose: 250 mls/hr Lorazepam (Ativan) 1 mg IV Q6H PRN PRN Reason: Anxiety Methylprednisolone Sodium Succinate (Solu-Medrol) 125 mg IVPUSH Q8H [facility] Last Admin: 08/31/16 23:57 Dose: 125 mg Mometasone Furoate/Formoterol Fumar (Dulera 200-5 Mcg) 0 puff IH DAILY [facility] Last Admin: 08/31/16 08:51 Dose: 1 puff Morphine Sulfate (Morphine) 2 mg IVPUSH Q4H PRN PRN Reason: Other Last Admin: 08/31/16 15:29 Dose: 2 mg Ondansetron HCl (Zofran) 4 mg IV Q6H PRN PRN Reason: Nausea/Vomiting Pantoprazole Sodium (Protonix) 40 mg PO DAILY@0700 [facility] Last Admin: 09/01/16 06:23 Dose: 40 mg (Aspirin [Halfprin] 81 Mg)Own Med * 0 each PO DAILY [facility] Last Admin: 08/31/16 08:49 Dose: 1 each (Glimepiride [Amaryl ] 4 Mg)Own Med 0 each PO DAILY [facility] Last Admin: 08/31/16 08:47 Dose: 1 each (Halobetasol Propionate [ Ultravate] Topical 0 each TOP BID [facility] Last Admin: 08/31/16 21:39 Dose: Not Given (Losartan 50 Mg) (Own Med) 0 each PO DAILY [facility] Last Admin: 08/31/16 08:48 Dose: 1 each Montelukast 10 Mg (TabOwn Med) 0 each PO BEDTIME [facility] Last Admin: 08/31/16 21:40 Dose: 1 each (Sitagliptin 100 Mg) (Januvia) 0 each PO DAILY [facility] Last Admin: 08/31/16 08:50 Dose: 1 each (Atorvastatin Calcium 10 Mg) Own Med 0 each PO DAILY [facility] Last Admin: 08/31/16 08:46 Dose: 1 each (Metformin [ Glucophage] 1,000 Mg )Own Med 0 each PO BID [facility] Last Admin: 08/31/16 21:39 Dose: 1 each Ventolin Inhaler 0 each INH Q6H PRN PRN Reason: wheezing Polyethylene Glycol (Miralax) 17 gm PO DAILY PRN PRN Reason: Constipation Senna/Docusate Sodium (Senna Plus) 1 tab PO BID PRN PRN Reason: Constipation Sodium Chloride (Saline Flush) 10 ml FLUSH ASDIRECTED PRN PRN Reason: Keep Vein Open Temazepam (Restoril) 30 mg PO BEDTIME PRN PRN Reason: Sleep Discontinued Medications Albuterol/Ipratropium (Duoneb 3.0-0.5 Mg/3 Ml) 3 ml NEB ONETIME ONE Stop: 08/30/16 16:50 Last Admin: 08/30/16 16:56 Dose: 3 ml Bumetanide (Bumex) 1 mg IVPUSH ONETIME ONE Stop: 08/31/16 10:27 Last Admin: 08/31/16 12:20 Dose: 1 mg Azithromycin 500 mg/ Sodium (Chloride) 250 mls @ 250 mls/hr IV ONETIME ONE Stop: 08/30/16 21:06 Last Admin: 08/30/16 20:15 Dose: 250 mls/hr Magnesium Sulfate 2 gm/ Premix 50 mls @ 25 mls/hr IV ONETIME ONE Stop: 08/31/16 00:21 Last Admin: 08/30/16 22:47 Dose: 25 mls/hr Methylprednisolone Sodium Succinate (Solu-Medrol) 125 mg IVPUSH ONETIME ONE Stop: 08/30/16 16:50 Last Admin: 08/30/16 17:06 Dose: 125 mg Montelukast Sodium (Singulair) 10 mg PO ONETIME ONE Stop: 08/30/16 23:01 Last Admin: 08/30/16 22:49 Dose: 10 mg Morphine Sulfate (Morphine) 2 mg IVPUSH ONETIME ONE Stop: 08/30/16 16:58 Last Admin: 08/30/16 17:10 Dose: 2 mg (Atorvastatin Calcium 10 Mg) Own Med 10 mg PO ONETIME ONE Stop: 08/30/16 23:01 Last Admin: 08/30/16 22:48 Dose: 10 mg (Metformin [ Glucophage] 1,000 Mg )Own Med 1,000 mg PO ONETIME ONE Stop: 08/30/16 23:01 Last Admin: 08/30/16 22:49 Dose: 1,000 mg Temazepam (Restoril) 30 mg PO BEDTIME PRN PRN Reason: Sleep - Exam General: Reports: alert, oriented, cooperative, no acute distress, other (Obese) HEENT: Reports: Pupils equal, Pupils reactive, EOMI, Mucous membr. moist/pink Neck: Reports: supple, trachea midline, no JVD, no thyromegaly, other (short and thick) Lungs: Reports: Clear to auscultation, Normal respiratory effort Cardiovascular: Reports: Regular Rate, Regular Rhythm Abdomen: Reports: bowel sounds present, soft, no tenderness, no distension, other (Obese) (Male) Exam: Deferred Rectal (Males) Exam: Deferred Back Exam: Reports: Normal Inspection, Decreased Range of Motion Extremities: Reports: no edema, normal pulses, no tenderness/swelling, no clubbing, no cyanosis, no calf tenderness Skin: Reports: warm, dry, intact Neurological: Reports: no new focal deficit Psy/Mental Status: Reports: alert, normal affect, normal mood *Q Meaningful Use (DIS) - VTE *Q VTE Criteria *Q: - Stroke *Q Stroke Criteria *Q: - AMI *Q AMI Criteria *Q:
[2016-09-01] MEDS: Azithromycin 500 MG in Sodium Chloride 0.9% 250 ML IV SCH (08:30)
[2016-09-01] MEDS: methylPREDNISolone Sodium Succinate 125 MG/2 ML SDV IVPUSH SCH (08:30)
[2016-09-01] MEDS: JANUVIA PO SCH (08:31)
[2016-09-01] MEDS: SITAGLIPTIN 100 MG PO SCH (08:31)
[2016-09-01] MEDS: ASPIRIN 81 MG PO SCH (08:33)
[2016-09-01] MEDS: METFORMIN 1000 MG PO SCH (08:34)
[2016-09-01] MEDS: Formoterol/Mometasone 200-5 MCG 8.8 GM Inhaler IH SCH (08:47)
[2016-09-01 09:07] VITALS: BP 131/58
== END 2016-09-01 11:00 | disposition home or self-care (01) ==
LOC: JD.ED 16:18 → JD.MS 20:03
PROVIDERS: ADMIT Internal Medicine; ATTEND Internal Medicine
DX: J44.1 Chronic obstructive pulmonary disease with (acute) exacerbation (principal); I10 Essential (primary) hypertension; E11.9 Type 2 diabetes mellitus without complications; Z79.84 Long term (current) use of oral hypoglycemic drugs; E66.9 Obesity, unspecified; Z68.41 Body mass index [BMI] 40.0-44.9, adult; K21.9 Gastro-esophageal reflux disease without esophagitis; J98.4 Other disorders of lung; Z79.82 Long term (current) use of aspirin; Z79.899 Other long term (current) drug therapy; D72.829 Elevated white blood cell count, unspecified; E87.2 Acidosis; Z88.1 Allergy status to other antibiotic agents; Z88.5 Allergy status to narcotic agent; Z88.0 Allergy status to penicillin
CPT/HCPCS: 36415; 36600; 71250; 80048; 80053; 82553; 82803; 83605; 83735; 84484; 85007; 85025; 85048; 85379; 86140; 87040; 93005; 93306; 94640; 94664; 94762; 96365; 96366; 96367; 96375; 96376; 99285; A9270; G0378; J0456; J2270; J2930; J7050; J3475

== ENCOUNTER 2019-05-06 02:16 | Emergency (ER) | payer OTHER ==
[2019-05-06] MEDS ORDERED: Aspirin 81 MG Tab.Chew PO ONE (02:27)
[2019-05-06] MEDS ORDERED: Sodium Chloride 0.9% 10 ML Syringe FLUSH PRN (02:27)
[2019-05-06 02:28] VITALS: BP 150/79; PULSE 72
[2019-05-06] MEDS ORDERED: HYDROmorphone 0.5 MG/0.5 ML Syringe IVPUSH ONE (02:28)
[2019-05-06] MEDS ORDERED: Ketorolac 30 MG/ML SDV IVPUSH ONE (04:06)
--- NOTE | 2019-05-06 04:20 | EDM.PDOC ---
ED HPI GENERAL MEDICAL PROBLEM - General Chief Complaint: Chest Pain Stated Complaint: CHEST PAIN Time Seen by Provider: 05/06/19 02:23 Source of Information: Reports: Patient, Family History Limitations: Reports: No Limitations - History of Present Illness INITIAL COMMENTS - FREE TEXT/NARRATIVE: The patient presents with left arm, neck and chest pain. This started about 1am. He has some shortness of breath with this. It hurts worse when he takes a deep breath. He has no fever, chills, cough, abdominal pain, nausea or vomiting. He has no cardiac history but he does have a family history of heart disease. He does not smoke. He has a history of hypertension. Onset: Gradual Duration: Hour(s): Location: Reports: Neck, Chest, Lower Extremity, Left Quality: Reports: Sharp Severity: Moderate Improves with: Reports: Immobilization Worsens with: Reports: Movement Context: Denies: Trauma Associated Symptoms: Reports: Chest Pain, Shortness of Breath. Denies: Cough, Fever/Chills, Headaches, Nausea/Vomiting Chest Pain Score (Numeric/FACES): 8 - Related Data Allergies Allergy/AdvReac Type Severity Reaction Status Date / Time Penicillins Allergy Mild Rash Verified 05/06/19 02:32 levofloxacin Allergy Rash Verified 05/06/19 02:32 chlorpheniramine polistirex AdvReac Other Verified 05/06/19 02:32 [From Tussionex] hydrocodone polistirex AdvReac Other Verified 05/06/19 02:32 [From Tussionex] Home Meds: Home Meds Glimepiride [Amaryl] 4 mg PO DAILY 11/05/13 [History] atorvaSTATin Calcium [Atorvastatin Calcium] 10 mg PO DAILY 11/05/13 [History] Omeprazole [Prilosec] 20 mg PO DAILY 02/05/14 [History] metFORMIN [Glucophage] 1,000 mg PO BID 11/20/14 [History] Losartan [Cozaar] 50 mg PO DAILY 01/30/15 [History] Albuterol Sulfate 1 unit NEB QID PRN 08/30/16 [History] Albuterol [Ventolin HFA] 108 mcg INH Q6H PRN 08/30/16 [History] Aspirin [Halfprin] 81 mg PO DAILY 08/30/16 [History] Budesonide/Formoterol [Symbicort 160-4.5 MCG] 2 inh INH DAILY 08/30/16 [History] Halobetasol Propionate [Ultravate] 1 applic TOP BID 08/30/16 [History] Montelukast [Singulair] 10 mg PO BEDTIME 08/30/16 [History] SitaGLIPtin [Januvia] 100 mg PO DAILY 08/30/16 [History] Past Medical History HEENT History: Reports: None Cardiovascular History: Reports: SOB on Exertion Respiratory History: Reports: Asthma, COPD Gastrointestinal History: Reports: GERD Genitourinary History: Reports: None Psychiatric History: Reports: None Endocrine/Metabolic History: Reports: Diabetes, Type II Immunologic History: Reports: None Oncologic (Cancer) History: Reports: None Dermatologic History: Reports: Other (See Below) Other Dermatologic History: rash on legs with open areas 6 areas - Past Surgical History Head Surgeries/Procedures: Reports: None HEENT Surgical History: Reports: None GI Surgical History: Reports: Colonoscopy Male Surgical History: Reports: None Social & Family History - Family History Respiratory: Reports: COPD - Tobacco Use Smoking Status *Q: Never Smoker Second Hand Smoke Exposure: No - Caffeine Use Caffeine Use: Reports: Soda - Recreational Drug Use Recreational Drug Use: No ED ROS GENERAL - Review of Systems Review Of Systems: See Below Constitutional: Reports: No Symptoms HEENT: Reports: No Symptoms Respiratory: Reports: Shortness of Breath Cardiovascular: Reports: Chest Pain Endocrine: Reports: No Symptoms GI/Abdominal: Reports: No Symptoms : Reports: No Symptoms Musculoskeletal: Reports: Other (Left arm and neck pain) ED EXAM, GENERAL - Physical Exam Exam: See Below Exam Limited By: No Limitations General Appearance: Alert, No Apparent Distress Ears: Normal External Exam Nose: Normal Inspection Head: Atraumatic, Normocephalic Neck: Normal Inspection, Supple, Non-Tender Respiratory/Chest: No Respiratory Distress, Lungs Clear, Normal Breath Sounds Cardiovascular: Regular Rate, Rhythm, No Edema, No Murmur GI/Abdominal: Soft, Non-Tender, No Organomegaly, No Mass Back Exam: Normal Inspection Extremities: Normal Inspection EKG INTERPRETATION EKG Date: 05/06/19 Time: 02:26 Rhythm: NSR Rate (Beats/Min): 73 [place]: Normal P-Wave: Present QRS: Normal ST-T: Normal QT: Normal EKG Interpretation Comments: Q waves in the anterior leads Course - Vital Signs Last Recorded V/S: Last Vital Signs Temp 96.5 F 05/06/19 02:21 Pulse 72 05/06/19 02:21 Resp 28 H 05/06/19 02:21 BP 150/79 H 05/06/19 02:21 Pulse Ox 99 05/06/19 02:21 - Orders/Labs/Meds Orders: Active Orders 24 hr Category Date Time Status Cardiac Monitoring [RC] . DIRECTED Care 05/06/19 02:27 Active EKG Documentation Completion [RC] ASDIRECTED Care 05/06/19 04:07 Active EKG Documentation Completion [RC] STAT Care 05/06/19 02:28 Active Peripheral IV Care [RC] . DIRECTED Care 05/06/19 02:28 Active Chest 1V Frontal [CR] Stat Exams 05/06/19 02:28 Taken TROPONIN I [CHEM] Stat Lab 05/06/19 04:07 Ordered Sodium Chloride 0.9% [Saline Flush] Med 05/06/19 02:27 Active 10 ml FLUSH ASDIRECTED PRN Peripheral IV Insertion Adult [OM.PC] Stat Oth 05/06/19 02:27 Ordered EKG 12 Lead [EK] Stat Ther 05/06/19 04:07 Ordered Medication Orders Sodium Chloride (Saline Flush) 10 ml FLUSH ASDIRECTED PRN PRN Reason: Keep Vein Open Last Admin: 05/06/19 02:25 Dose: 10 ml Labs: Laboratory Tests 05/06/19 05/06/19 05/06/19 Range/Units 02:25 02:25 02:25 WBC 12.88 H (4.23-9.07) K/mm3 RBC 5.17 (4.63-6.08) M/mm3 Hgb 14.8 (13.7-17.5) gm/dl Hct 45.2 (40.1-51.0) % MCV 87.4 (79.0-92.2) fl MCH 28.6 (25.7-32.2) pg MCHC 32.7 (32.2-35.5) g/dl RDW Std Deviation 41.7 (35.1-43.9) fL Plt Count 273 (163-337) K/mm3 MPV 11.3 (9.4-12.3) fl Neut % (Auto) 75.3 H (34.0-67.9) % Lymph % (Auto) 15.4 L (21.8-53.1) % [place] % (Auto) 5.5 (5.3-12.2) % Eos % (Auto) 3.1 (0.8-7.0) Baso % (Auto) 0.3 (0.1-1.2) % Neut # (Auto) 9.70 H (1.78-5.38) K/mm3 Lymph # (Auto) 1.98 (1.32-3.57) K/mm3 [place] # (Auto) 0.71 (0.30-0.82) K/mm3 Eos # (Auto) 0.40 (0.04-0.54) K/mm3 Baso # (Auto) 0.04 (0.01-0.08) K/mm3 Manual Slide Review Normal smear D-Dimer, Quantitative 0.30 (0.19-0.50) mg/L Sodium 135 L (136-145) mEq/L Potassium 3.9 (3.5-5.1) mEq/L Chloride 98 (98-107) mEq/L Carbon Dioxide 27 (21-32) mEq/L Anion Gap 13.9 (5-15) BUN 15 (7-18) mg/dL Creatinine 1.2 (0.7-1.3) mg/dL Est Cr Clr Drug Dosing 74.55 mL/min Estimated GFR (MDRD) > 60 (>60) mL/min BUN/Creatinine Ratio 12.5 L (14-18) Glucose 297 H (74-106) mg/dL Calcium 8.9 (8.5-10.1) mg/dL Total Bilirubin 0.5 (0.2-1.0) mg/dL AST 32 (15-37) U/L ALT 64 H (16-63) U/L Alkaline Phosphatase 96 (46-116) U/L Troponin I < 0.017 (0.00-0.056) ng/mL Total Protein 7.5 (6.4-8.2) g/dl Albumin 3.6 (3.4-5.0) g/dl Globulin 3.9 gm/dL Albumin/Globulin Ratio 0.9 L (1-2) Meds: Medications Generic Name Dose Route Start Last Admin Trade Name Freq PRN Reason Stop Dose Admin Sodium Chloride 10 ml 05/06/19 02:27 05/06/19 02:25 Saline Flush FLUSH 10 ml ASDIRECTED PRN Administration Keep Vein Open Discontinued Medications Generic Name Dose Route Start Last Admin Trade Name Freq PRN Reason Stop Dose Admin Aspirin 324 mg 05/06/19 02:27 05/06/19 02:34 Aspirin PO 05/06/19 02:28 324 mg ONETIME ONE Administration Hydromorphone HCl 0.5 mg 05/06/19 02:28 05/06/19 02:34 Dilaudid IVPUSH 05/06/19 02:29 0.5 mg ONETIME ONE Administration Ketorolac Tromethamine 30 mg 05/06/19 04:06 Toradol IVPUSH 05/06/19 04:07 ONETIME ONE - Re-Assessments/Exams Free Text/Narrative Re-Assessment/Exam: 05/06/19 04:18 I ordered an IV saline lock, EKG, CXR, labs and aspirin. His EKG shows a NSR with no acute changes. His CXR looks good. His WBC was elevated at 12.88. His D-dimer was elevated at 0.3. His Na was low at 135. His glucose was 297. His ALT was elevated at 64. His troponin is negative. He has pleuretic chest pain when he takes a deep breath now. I feel this is less likely cardiac pain. I will do a repeat EKG and repeat troponin. Departure - Departure Time of Disposition: 04:25 Disposition: Home, Self-Care 01 Condition: Good Clinical Impression: Atypical chest pain Referrals: Gilbert Perez MD [Primary Care Provider] - 1 Week Additional Instructions: Take tylenol or motrin for pain. Take your medication as prescribed. Follow up with your doctor within a week. Please return if you are worse. Sepsis Event Note - Evaluation Sepsis Screening Result: No Definite Risk - Focused Exam Vital Signs: Vital Signs Temp Pulse Resp BP Pulse Ox 05/06/19 02:21 96.5 F 72 28 H 150/79 H 99 Date Exam was Performed: 05/06/19 Time Exam was Performed: 04:14 - My Orders Last 24 Hours: My Active Orders 05/06/19 02:27 Cardiac Monitoring [RC] . DIRECTED Sodium Chloride 0.9% [Saline Flush] 10 ml FLUSH ASDIRECTED PRN Peripheral IV Insertion Adult [OM.PC] Stat 05/06/19 02:28 EKG Documentation Completion [RC] STAT Peripheral IV Care [RC] . DIRECTED Chest 1V Frontal [CR] Stat 05/06/19 04:07 EKG Documentation Completion [RC] ASDIRECTED TROPONIN I [CHEM] Stat EKG 12 Lead [EK] Stat - Assessment/Plan Last 24 Hours: My Active Orders 05/06/19 02:27 Cardiac Monitoring [RC] . DIRECTED Sodium Chloride 0.9% [Saline Flush] 10 ml FLUSH ASDIRECTED PRN Peripheral IV Insertion Adult [OM.PC] Stat 05/06/19 02:28 EKG Documentation Completion [RC] STAT Peripheral IV Care [RC] . DIRECTED Chest 1V Frontal [CR] Stat 05/06/19 04:07 EKG Documentation Completion [RC] ASDIRECTED TROPONIN I [CHEM] Stat EKG 12 Lead [EK] Stat
--- NOTE | 2019-05-06 07:38 | CR ---
Chest: Portable view of the chest was obtained. Comparison: Prior chest x-ray of 07/19/15. Heart size is within normal limits for portable technique. Lungs are clear with no acute parenchymal change. Bony structures are grossly intact. Impression: 1. Nothing acute is appreciated on portable chest x-ray. Diagnostic code #1 This report was dictated in [place] Standard Time
== END 2019-05-06 04:37 | disposition home or self-care (01) ==
LOC: JD.ED 02:16
DX: R07.89 Other chest pain (principal); I10 Essential (primary) hypertension; J44.9 Chronic obstructive pulmonary disease, unspecified; K21.9 Gastro-esophageal reflux disease without esophagitis; E11.9 Type 2 diabetes mellitus without complications; Z88.0 Allergy status to penicillin; Z88.1 Allergy status to other antibiotic agents; Z88.8 Allergy status to other drugs, medicaments and biological substances; Z88.5 Allergy status to narcotic agent; Z79.899 Other long term (current) drug therapy; Z79.84 Long term (current) use of oral hypoglycemic drugs; Z79.82 Long term (current) use of aspirin; Z79.51 Long term (current) use of inhaled steroids
CPT/HCPCS: 36415; 71045; 80053; 84484; 85025; 85379; 93005; 96374; 96375; 99285; A9270; J1170; J1885

== ENCOUNTER 2022-02-19 09:15 | Day surgery (SDC) | payer OTHER ==
[~2022-02-19 09:15] MED LIST: Acetaminophen 325 MG Tab PO SCH; Lactated Ringers 1,000 ML IV SCH; Lidocaine 1%/Sod Bicarbonate in NS 8.4% 1 ML Syringe IDERM PRN; Morphine 8 MG, EPINEPHrine 0.3 MG, Cefuroxime 750 MG, Ketorolac 30 MG, Sodium Chloride ... PRN; Pregabalin 25 MG Cap PO SCH; Sodium Chloride 0.9% 10 ML Syringe FLUSH PRN; Sodium Chloride 0.9% 10 ML Syringe FLUSH SCH; oxyCODONE ER 10 MG TAB.ER PO SCH
[2022-02-19] MEDS ORDERED: Lidocaine 1% 4 ML ONE (10:39)
[2022-02-19] MEDS ORDERED: Propofol 200 MG/20 ML SDV ONE (10:39)
[2022-02-19] MEDS ORDERED: fentaNYL 100 MCG/2 ML SDV ONE ×2 (10:40→12:34)
[2022-02-19] MEDS ORDERED: Midazolam 1 MG/ML 2 ML SDV ONE (10:49)
[2022-02-19] MEDS ORDERED: ceFAZolin 2 GM Vial ONE (10:50)
[2022-02-19] MEDS: Tranexamic Acid 1,000 MG/10 ML Vial ONE ×2 (11:52→12:20)
[2022-02-19] MEDS: Morphine 8 MG, EPINEPHrine 0.3 MG, Cefuroxime 750 MG, Ketorolac 30 MG, Sodium Chloride ... PRN ×10 (11:52→12:20)
[2022-02-19] MEDS: Vancomycin 1 GM SDV ONE ×2 (11:52→12:20)
[2022-02-19] MEDS ORDERED: Ketamine 500 mg/10 ML MDV ONE (12:14)
[2022-02-19] MEDS ORDERED: HYDROmorphone 0.5 MG/0.5 ML Syringe IVPUSH PRN (12:31)
[2022-02-19] MEDS ORDERED: fentaNYL 100 MCG/2 ML SDV IVPUSH PRN (12:31)
[2022-02-19] MEDS ORDERED: Cyclobenzaprine 10 MG Tab PO SCH (13:14)
[2022-02-19] MEDS ORDERED: oxyCODONE 5 MG Tab PO SCH (13:14)
[2022-02-19 15:39] VITALS: BP 166/76; PULSE 62
== END 2022-02-19 16:50 | disposition home or self-care (01) ==
LOC: JD.SDS 09:15
PROVIDERS: ATTEND Orthopaedic Surgery
DX: M16.11 Unilateral primary osteoarthritis, right hip (principal); E11.9 Type 2 diabetes mellitus without complications; J45.909 Unspecified asthma, uncomplicated; I10 Essential (primary) hypertension; E78.5 Hyperlipidemia, unspecified; K21.9 Gastro-esophageal reflux disease without esophagitis; E66.9 Obesity, unspecified; Z79.82 Long term (current) use of aspirin; Z79.84 Long term (current) use of oral hypoglycemic drugs; Z79.899 Other long term (current) drug therapy; Z88.0 Allergy status to penicillin; Z88.1 Allergy status to other antibiotic agents; Z88.6 Allergy status to analgesic agent; Z88.8 Allergy status to other drugs, medicaments and biological substances; Z68.34 Body mass index [BMI] 34.0-34.9, adult
CPT/HCPCS: 0055T; 27130; 36415; 73501; 82947; 86850; 86900; 86901; 97110; 97116; 97161; A9270; C1713; C1776; J0171; J0690; J0697; J1885; J2250; J2270; J2704; J3010; J3370; J3490; J7120; 01214

== ENCOUNTER 2023-11-05 18:04 | Emergency (ER) | payer OTHER ==
[2023-11-05] MEDS: Acetaminophen 325 MG Tab PO ONE (19:29)
[2023-11-05] MEDS: Sodium Chloride 0.9% 1,000 ML IV ONE (19:29)
[2023-11-05 19:48] LABS: BASOPHILS ABSOLUTE AUTO 0.1 K/mm3 (0.0-0.2); BASOPHILS PERCENT AUTO 0.5 % (0.0-1.0); EOSINOPHILS ABSOLUTE AUTO 0.1 K/mm3 (0.0-0.4); EOSINOPHILS PERCENT AUTO 1.2 % (0.0-6.0); HEMATOCRIT 40.4 % (42.0-52.0); HEMOGLOBIN 13.3 gm/dl (14.0-18.0); IMMATURE GRAN ABSOLUTE AUTO 0.05 K/mm3 (0.00-0.05); IMMATURE GRAN PERCENT AUTO 0.5 % (0.0-0.4); LYMPHOCYTES ABSOLUTE AUTO 0.9 K/mm3 (1.0-4.8); LYMPHOCYTES PERCENT AUTO 8.7 % (24.0-44.0); MEAN CORPUSCULAR HEMOGLOBIN 29.2 pg (28.0-32.0); MEAN CORPUSCULAR HGB CONC 32.9 g/dl (32.0-36.0); MEAN CORPUSCULAR VOLUME 88.6 fl (83.0-99.0); MEAN PLATELET VOLUME 10.7 fl (9.4-12.4); MONOCYTES ABSOLUTE AUTO 0.5 K/mm3 (0.0-0.8); NEUTROPHILS ABSOLUTE AUTO 9.1 K/mm3 (1.8-7.7); NEUTROPHILS PERCENT AUTO 84.1 % (41.0-71.0); PLATELET COUNT,PLT 187 K/mm3 (150-400); RED BLOOD CELL COUNT 4.56 M/mm3 (4.52-5.90)
[2023-11-05 20:04] LABS: CORONAVIRUS COVID-19 NAA POSITIVE (NEGATIVE); INFLUENZA A NAA NEGATIVE (NEGATIVE); RESPIRATORY SYNCYTIAL VIR NAA NEGATIVE (NEGATIVE)
[2023-11-05 20:12] LABS: A/G RATIO 1.2 (1-2); ALBUMIN 3.4 g/dl (3.4-5.0); ANION GAP 15.9 (5-15); BILIRUBIN TOTAL 0.4 mg/dL (0.2-1.0); BUN/CREATININE RATIO 16.7 (14-18); CALCIUM 9.1 mg/dL (8.5-10.1); CREATININE 1.2 mg/dL (0.7-1.3); EST CRCL DRUG DOSING (CG) 67.98 mL/min; MAGNESIUM 1.3 mg/dL (1.8-2.4); POTASSIUM,K 3.9 mEq/L (3.5-5.1); PROTEIN TOTAL,TP 6.3 g/dl (6.4-8.2)
[2023-11-05 20:15] LABS: LACTIC ACID 1.4 mmol/L (0.4-2.0)
[2023-11-05 20:35] VITALS: BP 152/66; PULSE 93
== END 2023-11-05 21:01 | disposition home or self-care (01) ==
LOC: JD.ED 18:04
DX: U07.1 COVID-19 (principal); E83.42 Hypomagnesemia; I10 Essential (primary) hypertension; J45.909 Unspecified asthma, uncomplicated; E66.9 Obesity, unspecified; E11.9 Type 2 diabetes mellitus without complications; Z88.0 Allergy status to penicillin; Z88.1 Allergy status to other antibiotic agents; Z88.8 Allergy status to other drugs, medicaments and biological substances; Z79.84 Long term (current) use of oral hypoglycemic drugs; Z79.82 Long term (current) use of aspirin; Z79.899 Other long term (current) drug therapy; Z68.36 Body mass index [BMI] 36.0-36.9, adult
CPT/HCPCS: 0241U; 36415; 71045; 80053; 83605; 83690; 83735; 84484; 85025; 87040; 93005; 96360; 99284; A9270; J7030; 93010

== ENCOUNTER 2024-10-20 03:47 | Emergency (ER) | payer OTHER ==
[2024-10-20] MEDS ORDERED: Sodium Chloride 0.9% 10 ML Syringe FLUSH PRN (03:50)
[2024-10-20 04:14] LABS: BASOPHILS ABSOLUTE AUTO 0.1 K/mm3 (0.0-0.2); BASOPHILS PERCENT AUTO 0.5 % (0.0-1.0); EOSINOPHILS ABSOLUTE AUTO 0.2 K/mm3 (0.0-0.4); EOSINOPHILS PERCENT AUTO 1.2 % (0.0-6.0); IMMATURE GRAN ABSOLUTE AUTO 0.07 K/mm3 (0.00-0.05); IMMATURE GRAN PERCENT AUTO 0.5 % (0.0-0.4); LYMPHOCYTES ABSOLUTE AUTO 2.1 K/mm3 (1.0-4.8); LYMPHOCYTES PERCENT AUTO 14.5 % (24.0-44.0); MEAN PLATELET VOLUME 11.3 fl (9.4-12.4); MONOCYTES ABSOLUTE AUTO 0.8 K/mm3 (0.0-0.8); MONOCYTES PERCENT AUTO 5.4 % (0.0-8.0); NEUTROPHILS ABSOLUTE AUTO 11.5 K/mm3 (1.8-7.7); NEUTROPHILS PERCENT AUTO 77.9 % (41.0-71.0); NRBC ABSOLUTE 0.00 (0.00-0.02); NRBC PERCENT 0.0 % (0.0-0.2); PLATELET COUNT,PLT 285 K/mm3 (150-400); RED BLOOD CELL COUNT 5.23 M/mm3 (4.52-5.90); WHITE BLOOD CELL COUNT,WBC 14.75 K/mm3 (3.9-11.3)
[2024-10-20 04:35] LABS: A/G RATIO 1.2 (1-2); ALANINE AMINOTRANSFERASE,ALT 33.0 U/L (16-63); ASPARTATE AMNIOTRANSFERASE,AST 18.0 U/L (15-37); BILIRUBIN TOTAL 0.3 mg/dL (0.2-1.0); BLOOD UREA NITROGEN,BUN 24.0 mg/dL (7-18); CARBON DIOXIDE,CO2 28.0 mEq/L (21-32); CHLORIDE,CL 104.0 mEq/L (98-107); CREATININE 1.1 mg/dL (0.7-1.3); EST CRCL DRUG DOSING (CG) 68.74 mL/min; ESTIMATED GFR 75.0 mL/min (>60); GLUCOSE RANDOM 92.0 mg/dL (70-99); POTASSIUM,K 4.4 mEq/L (3.5-5.1); PROTEIN TOTAL,TP 7.4 g/dl (6.4-8.2); SODIUM,NA 141.0 mEq/L (136-145); TROPONIN I HIGH SENSITIVITY 8.0 pg/mL (<=76)
[2024-10-20] MEDS: Iopamidol 755 Mg/ML 100 ML Bottle IVPUSH ONE (04:36)
[2024-10-20 08:04] VITALS: BP 99/58; PULSE 75
[2024-10-20 08:16] LABS: APPEARANCE,URINE CLEAR (Clear); GLUCOSE,URINE NEGATIVE (Negative); OCCULT BLOOD,URINE NEGATIVE (Negative)
== END 2024-10-20 09:20 | disposition home or self-care (01) ==
LOC: JD.ED 03:47
DX: K80.50 Calculus of bile duct without cholangitis or cholecystitis without obstruction (principal); R07.9 Chest pain, unspecified; I10 Essential (primary) hypertension; K21.9 Gastro-esophageal reflux disease without esophagitis; J44.89 Other specified chronic obstructive pulmonary disease; M19.90 Unspecified osteoarthritis, unspecified site; E66.9 Obesity, unspecified; E11.9 Type 2 diabetes mellitus without complications; Z88.0 Allergy status to penicillin; Z88.1 Allergy status to other antibiotic agents; Z88.8 Allergy status to other drugs, medicaments and biological substances; Z79.899 Other long term (current) drug therapy; Z79.82 Long term (current) use of aspirin; Z86.16 Personal history of COVID-19; Z68.36 Body mass index [BMI] 36.0-36.9, adult
CPT/HCPCS: 36415; 71045; 71275; 74177; 76705; 80053; 81003; 83690; 83735; 83880; 84484; 85025; 93005; 96361; 96374; 99285; A9270; J1171; J7030; Q9967; 93010; 99284

== ENCOUNTER 2024-12-13 20:26 | Emergency (ER) | payer BC, OTHER ==
[2024-12-13] MEDS ORDERED: Sodium Chloride 0.9% 10 ML Syringe FLUSH PRN (21:03)
[2024-12-13] MEDS ORDERED: Naloxone 0.4 MG/ML SDV IVPUSH PRN (21:05)
[2024-12-13 21:08] LABS: BASOPHILS ABSOLUTE AUTO 0.1 K/mm3 (0.0-0.2); BASOPHILS PERCENT AUTO 0.7 % (0.0-1.0); EOSINOPHILS ABSOLUTE AUTO 0.3 K/mm3 (0.0-0.4); EOSINOPHILS PERCENT AUTO 2.7 % (0.0-6.0); IMMATURE GRAN ABSOLUTE AUTO 0.03 K/mm3 (0.00-0.05); IMMATURE GRAN PERCENT AUTO 0.2 % (0.0-0.4); LYMPHOCYTES ABSOLUTE AUTO 2.6 K/mm3 (1.0-4.8); LYMPHOCYTES PERCENT AUTO 21.5 % (24.0-44.0); MEAN PLATELET VOLUME 11.1 fl (9.4-12.4); MONOCYTES ABSOLUTE AUTO 0.7 K/mm3 (0.0-0.8); MONOCYTES PERCENT AUTO 6.0 % (0.0-8.0); NEUTROPHILS ABSOLUTE AUTO 8.3 K/mm3 (1.8-7.7); NEUTROPHILS PERCENT AUTO 68.9 % (41.0-71.0); NRBC ABSOLUTE 0.00 (0.00-0.02); NRBC PERCENT 0.0 % (0.0-0.2); PLATELET COUNT,PLT 265 K/mm3 (150-400); RED BLOOD CELL COUNT 4.96 M/mm3 (4.52-5.90); WHITE BLOOD CELL COUNT,WBC 12.07 K/mm3 (3.9-11.3)
[2024-12-13] MEDS: Ondansetron 4 MG/2 ML SDV IVPUSH ONE (21:13)
[2024-12-13 21:18] LABS: A/G RATIO 1.2 (1-2); ALANINE AMINOTRANSFERASE,ALT 31.0 U/L (16-63); ASPARTATE AMNIOTRANSFERASE,AST 17.0 U/L (15-37); BILIRUBIN TOTAL 0.3 mg/dL (0.2-1.0); BLOOD UREA NITROGEN,BUN 23.0 mg/dL (7-18); CARBON DIOXIDE,CO2 30.0 mEq/L (21-32); CHLORIDE,CL 104.0 mEq/L (98-107); CREATININE 1.2 mg/dL (0.7-1.3); EST CRCL DRUG DOSING (CG) 69.16 mL/min; ESTIMATED GFR 68.0 mL/min (>60); GLUCOSE RANDOM 216.0 mg/dL (70-99); POTASSIUM,K 4.1 mEq/L (3.5-5.1); PROTEIN TOTAL,TP 7.3 g/dl (6.4-8.2); SODIUM,NA 143.0 mEq/L (136-145)
[2024-12-13 23:53] VITALS: BP 110/49; PULSE 75
== END 2024-12-13 23:52 | disposition home or self-care (01) ==
LOC: JD.ED 20:26
DX: R10.11 Right upper quadrant pain (principal); I10 Essential (primary) hypertension; K21.9 Gastro-esophageal reflux disease without esophagitis; E66.9 Obesity, unspecified; E11.9 Type 2 diabetes mellitus without complications; Z88.0 Allergy status to penicillin; J44.9 Chronic obstructive pulmonary disease, unspecified; Z88.8 Allergy status to other drugs, medicaments and biological substances; Z79.82 Long term (current) use of aspirin; Z79.84 Long term (current) use of oral hypoglycemic drugs; Z79.899 Other long term (current) drug therapy; Z86.16 Personal history of COVID-19; Z68.33 Body mass index [BMI] 33.0-33.9, adult
CPT/HCPCS: 36415; 76705; 76705-26; 80053; 85025; 86140; 96374; 96375; 99284; 99284-25; J1171; J2405

== ENCOUNTER 2025-01-07 08:05 | Day surgery (SDC) | payer BC, OTHER ==
[~2025-01-07 08:05] MED LIST changes: -Acetaminophen 325 MG Tab PO SCH; +Esmolol 100 MG/10 ML SDV ONE; +Glycopyrrolate 0.2 MG/ML 2 ML SDV ONE; +Ketamine HCL/NACL, ISO-OSM 50 MG/5 ML Syringe ONE; -Lactated Ringers 1,000 ML IV SCH; -Lidocaine 1%/Sod Bicarbonate in NS 8.4% 1 ML Syringe IDERM PRN; +Midazolam 1 MG/ML 2 ML SDV ONE; -Morphine 8 MG, EPINEPHrine 0.3 MG, Cefuroxime 750 MG, Ketorolac 30 MG, Sodium Chloride ... PRN; +Ondansetron 4 MG/2 ML SDV IVPUSH PRN; -Pregabalin 25 MG Cap PO SCH; +dexmedeTOMIDine HCl 200 MCG/2 ML SDV ONE; +fentaNYL 250 MCG/5 ML SDV ONE; -oxyCODONE ER 10 MG TAB.ER PO SCH
[2025-01-07] MEDS ORDERED: propofoL 1,000 MG/100 ML 100 ML ONE (08:38)
[2025-01-07] MEDS: Lactated Ringers 1,000 ML IV SCH (08:40)
[2025-01-07] MEDS ORDERED: Lactated Ringers 1,000 ML ONE (09:29)
[2025-01-07] MEDS: fentaNYL 100 MCG/2 ML SDV IVPUSH PRN (11:44)
[2025-01-07] MEDS: Ketorolac 15 MG/ML SDV IVPUSH ONE (13:20)
[2025-01-07 15:26] VITALS: BP 120/78; PULSE 66
== END 2025-01-07 15:10 | disposition home or self-care (01) ==
LOC: JD.SDS 08:05
PROVIDERS: ATTEND Surgery
DX: K80.12 Calculus of gallbladder with acute and chronic cholecystitis without obstruction (principal); E11.9 Type 2 diabetes mellitus without complications; I10 Essential (primary) hypertension; E66.9 Obesity, unspecified; Z88.8 Allergy status to other drugs, medicaments and biological substances; Z88.0 Allergy status to penicillin; Z79.82 Long term (current) use of aspirin; Z79.84 Long term (current) use of oral hypoglycemic drugs; Z68.32 Body mass index [BMI] 32.0-32.9, adult; Z79.899 Other long term (current) drug therapy
CPT/HCPCS: 47562; A9270; J0665; J0690; J1596; J1805; J1885; J2003; J2250; J2704; J3010; J7120; 00790; J1171; J3490